=== PATIENT | male | born 1995 | race Caucasian/White ===

== ENCOUNTER 2021-01-15 17:10 | Emergency (ER) | payer OTHER ==
[~2021-01-15] VITALS: Ht 167.6 cm; Wt 63.6 kg
[2021-01-15 20:13] VITALS: BP 137/82
[2021-01-15] MEDS ORDERED: LIDOCAINE 1% 10 ML VIAL SQ ONE (20:15)
[2021-01-15] MEDS ORDERED: BACITRACIN 0.9 GM PACKET OINTMENT TP ONE (20:15)
[2021-01-15] MEDS ORDERED: ACETAMINOPHEN 500 MG TABLET PO ONE (20:15)
[2021-01-15] MEDS ORDERED: AMOX TR/POT CLAV 875 MG/125 MG TABLET PO ONE (21:00)
== END 2021-01-15 21:30 | disposition home or self-care (01) ==
LOC: EMS 17:16
DX: S01.511A Laceration without foreign body of lip, initial encounter (principal); Y04.0XXA Assault by unarmed brawl or fight, initial encounter; Y93.89 Activity, other specified; Y92.89 Other specified places as the place of occurrence of the external cause; Y99.0 Civilian activity done for income or pay
CPT/HCPCS: 12011; 99283; J3490

== ENCOUNTER 2021-02-23 22:45 | Emergency (ER) | payer OTHER ==
[~2021-02-23] VITALS: Ht 167.6 cm; Wt 65.9 kg
[2021-02-23 23:19] VITALS: BP 140/66
== END 2021-02-23 23:36 | disposition home or self-care (01) ==
LOC: EMS 22:49
DX: S01.512D Laceration without foreign body of oral cavity, subsequent encounter (principal); X58.XXXD Exposure to other specified factors, subsequent encounter
CPT/HCPCS: 99281; Z7502